=== PATIENT | female | born 1940 | race Caucasian/White ===

== ENCOUNTER → 2017-02-01 | Outpatient (CLI) | payer MEDICARE, OTHER ==
[~2017-02-01] MED LIST: DIAZ5TAB4 PO; ESTR1TAB44 PO; SIMV20TA3 PO; SITA100T PO; TELM80TA PO
== END | disposition home or self-care (01) ==
LOC: CFH 08:08
PROVIDERS: ATTEND Obstetrics & Gynecology
DX: Z12.31 Encounter for screening mammogram for malignant neoplasm of breast (principal)
CPT/HCPCS: 77063; G0202

== ENCOUNTER 2017-03-06 07:58 | Emergency (ER) | payer MEDICARE, OTHER ==
[~2017-03-06] VITALS: Ht 165.1 cm; Wt 58.3 kg
[2017-03-06 07:59] VITALS: BP 135/80
== END 2017-03-06 09:30 | disposition home or self-care (01) ==
LOC: ED 09:10
DX: S81.802A Unspecified open wound, left lower leg, initial encounter (principal); E78.00 Pure hypercholesterolemia, unspecified; E78.5 Hyperlipidemia, unspecified; I10 Essential (primary) hypertension; E11.9 Type 2 diabetes mellitus without complications; X58.XXXA Exposure to other specified factors, initial encounter; Y93.89 Activity, other specified; Y92.89 Other specified places as the place of occurrence of the external cause; Y99.8 Other external cause status
CPT/HCPCS: 99281

== ENCOUNTER 2017-03-11 11:16 | Emergency (ER) | payer MEDICARE, OTHER ==
[~2017-03-11] VITALS: Ht 165.1 cm; Wt 57.5 kg
[2017-03-11 11:19] VITALS: BP 106/65
== END 2017-03-11 12:36 | disposition home or self-care (01) ==
LOC: ED 12:01
DX: S81.812D Laceration without foreign body, left lower leg, subsequent encounter (principal)
CPT/HCPCS: 99281

== ENCOUNTER 2017-06-30 08:40 | Emergency (ER) | payer MEDICARE, OTHER ==
[~2017-06-30] VITALS: Ht 165.1 cm; Wt 59.1 kg
[2017-06-30 08:42] VITALS: BP 129/76
[2017-06-30] MEDS ORDERED: BACITRACIN ZINC OINT 500U/GM, 0.9 GM ONE (09:12)
[2017-07-03] MEDS ORDERED: HYOS0.1258 PO (09:58)
[2017-07-03] MEDS ORDERED: DIAZ5TAB4 PO (09:58)
[2017-07-03] MEDS ORDERED: DONE5TAB7 PO (09:58)
== END 2017-06-30 09:44 | disposition home or self-care (01) ==
LOC: ED 09:25
DX: S81.811A Laceration without foreign body, right lower leg, initial encounter (principal); I10 Essential (primary) hypertension; E11.9 Type 2 diabetes mellitus without complications; E78.00 Pure hypercholesterolemia, unspecified; X58.XXXA Exposure to other specified factors, initial encounter; Y92.89 Other specified places as the place of occurrence of the external cause; Y92.098 Other place in other non-institutional residence as the place of occurrence of the external cause; Y99.8 Other external cause status
CPT/HCPCS: 12002; 99283

== ENCOUNTER 2017-07-05 08:22 | Emergency (ER) | payer MEDICARE, OTHER ==
[~2017-07-05] VITALS: Ht 165.1 cm; Wt 60.0 kg
[~2017-07-05 08:22] MED LIST changes: +DONE5TAB7 PO; +HYOS0.1258 PO
[2017-07-05 08:23] VITALS: BP 112/62
== END 2017-07-05 09:41 | disposition home or self-care (01) ==
LOC: ED 08:39
DX: L03.116 Cellulitis of left lower limb (principal); I10 Essential (primary) hypertension; E11.9 Type 2 diabetes mellitus without complications; E78.00 Pure hypercholesterolemia, unspecified; E78.5 Hyperlipidemia, unspecified
CPT/HCPCS: 99282

== ENCOUNTER 2017-08-26 19:20 | Emergency (ER) | payer MEDICARE, OTHER ==
[~2017-08-26] VITALS: Ht 165.1 cm; Wt 58.6 kg
[2017-08-26 19:27] VITALS: BP 154/79
== END 2017-08-26 20:20 | disposition home or self-care (01) ==
LOC: ED 20:00
DX: S80.812A Abrasion, left lower leg, initial encounter (principal); E11.9 Type 2 diabetes mellitus without complications; X58.XXXA Exposure to other specified factors, initial encounter; Y93.89 Activity, other specified; Y92.89 Other specified places as the place of occurrence of the external cause; Y99.8 Other external cause status
CPT/HCPCS: 99283

== ENCOUNTER 2017-12-14 14:52 | Emergency (ER) | payer MEDICARE, OTHER ==
[~2017-12-14] VITALS: Ht 165.1 cm; Wt 60.1 kg
[2017-12-14 14:55] VITALS: BP 129/67
== END 2017-12-14 17:47 ==
LOC: ED 17:12
DX: S81.802A Unspecified open wound, left lower leg, initial encounter (principal); S80.12XA Contusion of left lower leg, initial encounter; I10 Essential (primary) hypertension; E11.9 Type 2 diabetes mellitus without complications; M19.90 Unspecified osteoarthritis, unspecified site; Z87.891 Personal history of nicotine dependence; W22.8XXA Striking against or struck by other objects, initial encounter; Y93.89 Activity, other specified; Y92.89 Other specified places as the place of occurrence of the external cause; Y99.8 Other external cause status
CPT/HCPCS: 99284

== ENCOUNTER 2018-03-15 16:48 | Emergency (ER) | payer MEDICARE, OTHER ==
[~2018-03-15] VITALS: Ht 165.1 cm; Wt 57.7 kg
[2018-03-15 16:50] VITALS: BP 150/66
[2018-03-15] MEDS ORDERED: ACETAMINOPHEN 325 MG TABLET PO ONE (18:30)
[2018-03-15] MEDS ORDERED: ACETAMINOPHEN 325 MG TABLET ONE (18:37)
== END 2018-03-15 18:59 | disposition home or self-care (01) ==
LOC: ED 18:45
DX: S06.0X0A Concussion without loss of consciousness, initial encounter (principal); S00.31XA Abrasion of nose, initial encounter; S00.81XA Abrasion of other part of head, initial encounter; E11.9 Type 2 diabetes mellitus without complications; I10 Essential (primary) hypertension; E78.00 Pure hypercholesterolemia, unspecified; M19.90 Unspecified osteoarthritis, unspecified site; Z90.89 Acquired absence of other organs; Z87.891 Personal history of nicotine dependence; W22.8XXA Striking against or struck by other objects, initial encounter; Y93.89 Activity, other specified; Y99.8 Other external cause status; Y92.89 Other specified places as the place of occurrence of the external cause
CPT/HCPCS: 70450; 70486; 72125; 99284

== ENCOUNTER 2018-05-09 16:59 | Emergency (ER) | payer MEDICARE, OTHER ==
[~2018-05-09] VITALS: Ht 162.6 cm; Wt 59.8 kg
[2018-05-09 17:06] VITALS: BP 146/78
== END 2018-05-09 18:02 | disposition home or self-care (01) ==
LOC: ED 17:40
DX: S81.811A Laceration without foreign body, right lower leg, initial encounter (principal); M19.90 Unspecified osteoarthritis, unspecified site; I10 Essential (primary) hypertension; E78.5 Hyperlipidemia, unspecified; E11.9 Type 2 diabetes mellitus without complications; W26.8XXA Contact with other sharp object(s), not elsewhere classified, initial encounter; Y93.89 Activity, other specified; Y92.512 Supermarket, store or market as the place of occurrence of the external cause; Y99.8 Other external cause status
CPT/HCPCS: 99283

== ENCOUNTER → 2019-01-22 | Outpatient (CLI) | payer MEDICARE, OTHER ==
[~2019-01-22] MED LIST changes: +MINO100C PO; +TELM20TA PO
[2019-01-22 13:52] LABS: BASOPHILS # (AUTO) 0.03 x10^3/uL (0-0.1); BASOPHILS % (AUTO) 0 % (0-1); EOSINOPHILS # (AUTO) 0.01 x10^3/uL (0-0.4); EOSINOPHILS % (AUTO) 0 % (1-7); LYMPHOCYTES % (AUTO) 11 % (22-44); MD NO; MEAN CORPUSCULAR HEMOGLOBIN 31.1 pg (27.0-34.8); MEAN CORPUSCULAR HGB CONC 32.7 g/dL (32.4-35.8); MEAN CORPUSCULAR VOLUME 95.1 fL (80-100); MEAN PLATELET VOLUME 8.3 fL (7.4-10.4); MONOCYTES # (AUTO) 0.74 x10^3/uL (0.2-0.8); MONOCYTES % (AUTO) 7 % (2-9); NEUTROPHILS # (AUTO) 8.34 x10^3/uL (1.8-6.8); NEUTROPHILS % (AUTO) 82 % (42-75); PLATELET COUNT 331 x10^3/uL (130-400); RED BLOOD COUNT 5.15 x10^6/uL (3.82-5.3); RED CELL DISTRIBUTION WIDTH 14.1 % (9.6-15.2)
[2019-01-22 13:54] LABS: MICROSCOPIC AUTO
[2019-01-22 14:02] LABS: CALCIUM 9.4 mg/dL (8.5-10.1); CHLORIDE 107 mmol/L (98-107)
[2019-01-22 14:08] LABS: ALANINE AMINOTRANSFERASE 27 U/L (12-78); ALBUMIN 3.9 g/dL (3.4-5.0); ALKALINE PHOSPHATASE 50 U/L (45-117); ANION GAP 7 mmol/L (5-15); BILIRUBIN,TOTAL 0.8 mg/dL (0.2-1.0); CREATININE 0.84 mg/dL (0.55-1.02); TOTAL PROTEIN 7.9 g/dL (6.4-8.2)
[2019-01-22 14:11] LABS: CULTURE INDICATED? YES
== END | disposition home or self-care (01) ==
LOC: STAR 12:25
PROVIDERS: ATTEND Obstetrics & Gynecology Gynecology
DX: Z01.818 Encounter for other preprocedural examination (principal); N39.3 Stress incontinence (female) (male)
CPT/HCPCS: 36415; 71046; 80053; 81001; 85025; 87086; 93005

== ENCOUNTER 2019-01-26 07:47 | Day surgery (SDC) | payer MEDICARE, OTHER ==
[~2019-01-26] VITALS: Ht 165.1 cm; Wt 61.5 kg
[~2019-01-26 07:47] MED LIST changes: +EPINEPHRINE 1 MG/ML, 1ML ONE; +FLUORESCEIN SODIUM 500 MG/5 ML ONE; +LIDOCAINE 1%, 20ML ONE; +NEOMY/POLYMYXIN B GU IRR. 1 ML ONE; +THROMBIN 5,000 UNIT VIAL TP ONE
[2019-01-26 08:26] VITALS: BP 151/77
[2019-01-26] MEDS ORDERED: LACTATED RINGERS 1,000 ML IV SCH (09:00)
[2019-01-26] MEDS ORDERED: FENTANYL PF 100 MCG/2ML ONE (09:13)
[2019-01-26] MEDS ORDERED: NEOSTIGMINE 1 MG/ML, 10ML ONE (09:27)
[2019-01-26] MEDS ORDERED: PROPOFOL 10 MG/ML, 20ML ONE (09:27)
[2019-01-26] MEDS ORDERED: CEFAZOLIN 1,000 MG ONE (09:27)
[2019-01-26] MEDS ORDERED: DEXAMETHASONE 4 MG/ML, 1ML ONE (09:27)
[2019-01-26] MEDS ORDERED: SUCCINYLCHOLINE 20 MG/ML, 10ML ONE (09:27)
[2019-01-26] MEDS ORDERED: GLYCOPYRROLATE 0.2MG/1ML, 5ML ONE (09:27)
[2019-01-26] MEDS ORDERED: ROCURONIUM 10MG/ML,5ML ONE (09:27)
[2019-01-26] MEDS ORDERED: ONDANSETRON 2MG/ML, 2ML ONE (09:27)
[2019-01-26] MEDS ORDERED: LABETALOL 5 MG/ML SYRINGE IV PRN (09:30)
[2019-01-26] MEDS ORDERED: HALOPERIDOL 5 MG/ML IV PRN (09:30)
[2019-01-26] MEDS ORDERED: hydrALAzine 20 MG/ML, 1ML IV PRN (09:30)
[2019-01-26] MEDS ORDERED: PROMETHAZINE 25 MG/ML, 1ML IV PRN (09:30)
[2019-01-26] MEDS ORDERED: ALBUTEROL SULFATE 2.5 MG/3 ML NPPB PRN (09:30)
[2019-01-26] MEDS ORDERED: OXYcodone 5 MG/5 ML ORAL.SOL UDC PO PRN (09:30)
[2019-01-26] MEDS ORDERED: FENTANYL PF 100 MCG/2ML IV PRN (09:30)
[2019-01-26] MEDS ORDERED: HYDROmorphone 2 MG/ML, 1ML IVPush PRN (09:30)
[2019-01-26] MEDS ORDERED: MEPERIDINE/PF 25MG/ML,1ML ONE (10:16)
[2019-01-26] MEDS ORDERED: OXYcodone 5 MG/5 ML ORAL.SOL UDC ONE (10:16)
[2019-01-26] MEDS ORDERED: ACETAMINOPHEN 650 MG/20.3 ML UDC ONE (10:16)
[2019-01-26] MEDS ORDERED: ACETAMINOPHEN 325 MG TABLET PO PRN (10:30)
[2019-01-26] MEDS ORDERED: MEPERIDINE/PF 25MG/0.5ML IVPush PRN (10:30)
== END 2019-01-26 15:05 | disposition home or self-care (01) ==
LOC: OUT 07:47
PROVIDERS: ATTEND Obstetrics & Gynecology Gynecology
DX: N39.3 Stress incontinence (female) (male) (principal); I10 Essential (primary) hypertension; E11.9 Type 2 diabetes mellitus without complications; Z79.84 Long term (current) use of oral hypoglycemic drugs; Z79.890 Hormone replacement therapy; Z79.899 Other long term (current) drug therapy; Z98.890 Other specified postprocedural states
CPT/HCPCS: 57288; 82962; C1771; J0171; J0690; J1100; J2175; J2405; J2704; J3010; J7120; J2710; J0330

== ENCOUNTER → 2019-02-05 | Outpatient (CLI) | payer MEDICARE, OTHER ==
[~2019-02-05] MED LIST changes: -EPINEPHRINE 1 MG/ML, 1ML ONE; -FLUORESCEIN SODIUM 500 MG/5 ML ONE; -LIDOCAINE 1%, 20ML ONE; -NEOMY/POLYMYXIN B GU IRR. 1 ML ONE; -THROMBIN 5,000 UNIT VIAL TP ONE
== END | disposition home or self-care (01) ==
LOC: CFH 08:36
PROVIDERS: ATTEND Obstetrics & Gynecology Gynecology
DX: Z12.31 Encounter for screening mammogram for malignant neoplasm of breast (principal)
CPT/HCPCS: 77063; 77067

== ENCOUNTER 2019-10-21 18:45 | Emergency (ER) | payer MEDICARE, OTHER ==
[~2019-10-21] VITALS: Ht 165.1 cm; Wt 64.0 kg
[~2019-10-21 18:45] MED LIST changes: -MINO100C PO; +MINO100C61 PO; +SIMV20TA19 PO; -SIMV20TA3 PO
[2019-10-21 19:06] VITALS: BP 166/58
[2019-10-21] MEDS ORDERED: LIDOCAINE-MPF 1%, 5ML ONE (19:29)
[2019-10-21] MEDS ORDERED: LIDOCAINE 1%, 10ML INFIL ONE (19:30)
--- NOTE | 2019-10-21 19:33 | NUR ---
LIDOCAINE PULLED FOR PROVIDER ADMIN
[2019-10-21] MEDS ORDERED: NEOSPORIN OINT. PKT 1 PACKET ONE (20:23)
== END 2019-10-21 20:46 | disposition home or self-care (01) ==
LOC: ED 19:50
DX: S81.812A Laceration without foreign body, left lower leg, initial encounter (principal); E11.9 Type 2 diabetes mellitus without complications; I10 Essential (primary) hypertension; E78.5 Hyperlipidemia, unspecified; Z87.891 Personal history of nicotine dependence; W01.198A Fall on same level from slipping, tripping and stumbling with subsequent striking against other object, initial encounter; Y93.89 Activity, other specified; Y92.410 Unspecified street and highway as the place of occurrence of the external cause; Y99.8 Other external cause status
CPT/HCPCS: 12004; 99283

== ENCOUNTER → 2020-02-08 | Outpatient (CLI) | payer MEDICARE, OTHER | END | disposition home or self-care (01) | LOC: CFH 13:51 | PROVIDERS: ATTEND Obstetrics & Gynecology Gynecology | DX: Z12.31 Encounter for screening mammogram for malignant neoplasm of breast (principal) | CPT/HCPCS: 77063; 77067 ==

== ENCOUNTER 2020-09-11 14:57 | Emergency (ER) | payer MEDICARE, OTHER ==
[~2020-09-11] VITALS: Ht 162.6 cm; Wt 63.0 kg
[2020-09-11 15:36] VITALS: BP 136/57
--- NOTE | 2020-09-11 15:37 | NUR ---
PT BIB POV FOR WRIST PAIN AFTER A FALL. PT RESTING IN [facility] WITH MONITORING IN PLACE, NADN AT THIS TIME, WILL CONTINUE TO MONITOR.
== END 2020-09-11 16:56 | disposition home or self-care (01) ==
LOC: ED 16:50
DX: S63.501A Unspecified sprain of right wrist, initial encounter (principal); E11.9 Type 2 diabetes mellitus without complications; I10 Essential (primary) hypertension; E78.5 Hyperlipidemia, unspecified; E78.00 Pure hypercholesterolemia, unspecified; Z90.89 Acquired absence of other organs; W01.0XXA Fall on same level from slipping, tripping and stumbling without subsequent striking against object, initial encounter; Y93.89 Activity, other specified; Y92.488 Other paved roadways as the place of occurrence of the external cause; Y99.8 Other external cause status
CPT/HCPCS: 29125; 99283

== ENCOUNTER 2021-05-28 17:16 | Emergency (ER) | payer MEDICARE, OTHER ==
[~2021-05-28] VITALS: Ht 172.7 cm; Wt 52.0 kg
[~2021-05-28 17:16] MED LIST changes: +ENOX40SY4 SQ
--- NOTE | 2021-05-28 17:55 | NUR ---
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 Addendum: 05/28/21 at 1925 by [facility] CONTACT WITH PT. CARE ASSUMED FROM MELANIE CRESPO AT THIS TIME. PT LAYING IN BED CONNECTED TO MONITOR. NADN. TREVINOS. PT IS AAOX4. NO DEFICITS NOTED. AT BEDSIDE.
--- NOTE | 2021-05-28 18:15 | NUR ---
PT TO ROOM AT THIS TIME. PT ASSISTED ONTO GURNEY. PT UNDRESSING AND GETTING INTO GOWN BY SELF. AT BS. CALL LIGHT WITHIN REACH.
[2021-05-28 18:26] LABS: BASOPHILS % (AUTO) 1 % (0-1); EOSINOPHILS % (AUTO) 0 % (1-7); LYMPHOCYTES % (AUTO) 17 % (22-44); MEAN CORPUSCULAR HEMOGLOBIN 31.5 pg (27.0-34.8); MEAN CORPUSCULAR HGB CONC 33.9 g/dL (32.4-35.8); MEAN PLATELET VOLUME 8.1 fL (7.4-10.4); MONOCYTES % (AUTO) 7 % (2-9); NEUTROPHILS % (AUTO) 75 % (42-75); PLATELET COUNT 365 x10^3/uL (130-400); RED BLOOD COUNT 4.64 x10^6/uL (3.82-5.3); RED CELL DISTRIBUTION WIDTH 14.1 % (9.6-15.2)
[2021-05-28 18:29] LABS: ALBUMIN 3.5 g/dL (3.4-5.0); ANION GAP 7 mmol/L (5-15); CALCIUM 9.1 mg/dL (8.5-10.1); CHLORIDE 102 mmol/L (98-107)
[2021-05-28 18:33] LABS: ALANINE AMINOTRANSFERASE 26 U/L (12-78); ALKALINE PHOSPHATASE 84 U/L (45-117); BILIRUBIN,TOTAL 0.4 mg/dL (0.2-1.0); CREATININE 0.67 mg/dL (0.55-1.02); TOTAL PROTEIN 7.8 g/dL (6.4-8.2)
--- NOTE | 2021-05-28 20:01 | NUR ---
URINE COLLECTED AND WALKED TO LAB
[2021-05-28 20:39] LABS: MICROSCOPIC AUTO
[2021-05-28 20:44] VITALS: BP 133/69
== END 2021-05-28 22:01 | disposition home or self-care (01) ==
LOC: ED 21:09
DX: R53.1 Weakness (principal); R42 Dizziness and giddiness; E78.5 Hyperlipidemia, unspecified; E78.00 Pure hypercholesterolemia, unspecified; M19.90 Unspecified osteoarthritis, unspecified site; Z90.89 Acquired absence of other organs; Z87.891 Personal history of nicotine dependence; W01.0XXA Fall on same level from slipping, tripping and stumbling without subsequent striking against object, initial encounter; Y93.89 Activity, other specified; Y92.89 Other specified places as the place of occurrence of the external cause; Y99.8 Other external cause status
CPT/HCPCS: 36415; 70450; 71045; 80053; 81001; 85025; 87086; 93005; 99285